=== PATIENT | male | born 1960 | race Caucasian/White ===

== ENCOUNTER 2019-09-26 15:45 | Emergency (ER) | payer OTHER ==
[~2019-09-26] VITALS: Ht 177.8 cm; Wt 95.3 kg
[2019-09-26 15:55] VITALS: Ht 177.8 cm; Wt 95.3 kg
[2019-09-26 16:49] LABS: BASOPHIL % 0.7 % (0-2); PLATELET COUNT 346 x10^3mcL (130-400); RED CELL DISTRIBUTION WIDTH 13.9 % (11.5-14.5)
[2019-09-26 16:58] LABS: CALCIUM 9.3 mg/dL (8.5-10.1); CARBON DIOXIDE 29.5 mmol/L (21-32); CHLORIDE SERUM 102 mmol/L (98-107); CREATININE SERUM 1.1 mg/dL (0.7-1.3); GFR1 > 60 mL/min; GLUCOSE SERUM 102 mg/dL (74-106); SODIUM SERUM 139 mmol/L (136-145)
[2019-09-26 17:02] LABS: ALBUMIN 3.9 g/dL (3.4-5.0); ALKALINE PHOSPHATASE 51 U/L (46-116); ALT/SGPT 29 U/L (16-63); AST/SGOT 20 U/L (15-37); BILIRUBIN TOTAL 0.4 mg/dL (0.20-1.00); TOTAL PROTEIN, SERUM 7.4 g/dL (6.4-8.2)
[2019-09-26 18:39] VITALS: BP 147/96
== END 2019-09-26 18:39 | disposition home or self-care (01) ==
LOC: ED 15:45
PROVIDERS: Emergency Medicine
DX: S39.012A Strain of muscle, fascia and tendon of lower back, initial encounter (principal); X58.XXXA Exposure to other specified factors, initial encounter; Y93.89 Activity, other specified; Y92.89 Other specified places as the place of occurrence of the external cause; Y99.8 Other external cause status
CPT/HCPCS: J1885; J2405; J3010